=== PATIENT | male | born 1985 | race Caucasian/White ===

== ENCOUNTER 2019-11-20 17:04 | Emergency (ER) | payer SELFPAY ==
[2019-11-20 17:18] VITALS: BP 157/85; PULSE 125; RESP 16; TEMP 38.2; O2SAT 98
--- NOTE | 2019-11-20 17:49 | ED.URI ---
HPI - URI/Sore Throat General Chief Complaint: Upper Respiratory Infection Stated Complaint: sore throat/fever/body aches/fatigue Time Seen by Provider: 11/20/19 17:40 Source: patient and RN notes reviewed Mode of arrival: ambulatory Limitations: no limitations History of Present Illness HPI Narrative: Patient presents today with a 3-day history of fever up to 101.7, sore throat, congestion, rhinorrhea, headache, body aches, fatigue. Denies cough, ear pain. He currently rates his pain 7/10 and has been taking Excedrin with relief. MD elicited complaint: fever and sore throat Related Data Allergies Allergy/AdvReac Type Severity Reaction Status Date / Time No Known Allergies Allergy Verified 11/20/19 17:26 Review of Systems Review of Systems: Narrative: CONSTITUTIONAL: Denies chills, or sweats.+ Body aches, fever, fatigue EYES: Denies visual changes, redness, or discharge. ENT: Denies otalgia.+ Rhinorrhea, congestion, sore throat CARDIOVASCULAR: Denies chest pain, palpitations, or edema. RESPIRATORY: Denies cough or dyspnea. GASTROINTESTINAL: Denies abdominal pain, nausea, vomiting, or diarrhea. GENITOURINARY: Denies dysuria or hematuria. SKIN: Denies rash, itching, or wounds. MUSCULOSKELETAL: Denies back pain, joint pain, or myalgia. NEUROLOGIC: Denies numbness, tingling, or weakness.+ Headache PSYCH: Denies depression or anxiety. PMFSH Comments At time of signature, I have reviewed and agree with nursing past medical, surgical, social and family history unless otherwise noted. Please see nursing chart for further information. There is no relevant family history pertinent to the presenting complaint Exam Narrative: Exam Narrative: GENERAL: Mildly ill-appearing, well-nourished, and in no acute distress. HEAD: Normocephalic, atraumatic. EYES: EOMI. No redness or drainage. Conjunctivae normal. ENT: Mucous membranes pink and moist. Nares clear. No rhinorrhea. TMs normal bilaterally. Throat erythematous with mild edema. No exudate.. Uvula midline. NECK: Normal AROM. Supple. Bilateral anterior cervical chain lymphadenopathy. CHEST: No respiratory distress. Clear to auscultation. HEART: Regular rate and rhythm. No murmur appreciated. Normal peripheral pulses. EXTREMITIES: Normal range of motion. No edema. SKIN: Warm, dry, no rash. Capillary refill normal. Normal skin turgor. NEURO: No focal deficits. Alert and oriented x3. Gait steady. PSYCH: Normal affect. No signs of depression or anxiety. Course Vital Signs Vital signs: Vital Signs Temperature 100.7 F H 11/20/19 17:18 Pulse Rate 125 H 11/20/19 17:18 Respiratory Rate 16 11/20/19 17:18 Blood Pressure 157/85 H 11/20/19 17:18 Pulse Oximetry 98 11/20/19 17:18 Temperature 100.7 F H 11/20/19 17:18 Pulse Rate 125 H 11/20/19 17:18 Respiratory Rate 16 11/20/19 17:18 Blood Pressure 157/85 H 11/20/19 17:18 Pulse Oximetry 98 11/20/19 17:18 Reviewed. Pt has been instructed to follow up with his PCP regarding his elevated blood pressure today. MDM - URI/Sore Throat Differential Diagnosis Differential diagnosis: Likely upper respiratory infection, viral infection, pharyngitis and other (Strep throat) Lab Data Attestation: I reviewed the patient's lab results. Labs: Strep Screen Positive Group A Strep *(Reference Range: Negative)* Critical Care Time Critical Care Time Critical Care Time: No Discharge Plan Discharge Clinical Impression: Strep throat Patient Disposition: Home, Self-Care Condition: Stable Instructions: Antibiotic Form, Strep Throat (DC) Additional Instructions: You have been diagnosed with strep throat. Please take the amoxicillin as prescribed until gone. You will be contagious for 48 hours. Continue [id number] medication for your symptoms. Follow-up with your doctor in 3 to 4 days if symptoms are not improving. Your blood pressure was elevated above 120/80 today
== END 2019-11-20 17:57 | disposition home or self-care (01) ==
PROVIDERS: Emergency Provider Nurse Practitioner
DX: J02.0 Streptococcal pharyngitis (principal)
CPT/HCPCS: 87880; 99213; G0463